=== PATIENT | male | born 1950 | race Caucasian/White ===

== ENCOUNTER → 2017-09-02 | Outpatient (CLI) | payer BC, MEDICARE ==
[~2017-09-02] MED LIST: FENO135C PO; FISH1CAP49 PO; FLUTICASONE PROPIO NASAL; INSU100V SQ; INSU3INS3 SQ; LISI10TA7 PO; LOVAZA PO; MAGN250T10 PO; METF-283 PO; METO50TA9 PO; MULT-40 PO; PARO40TA72 PO; RANO10003 PO; RANO500T2 PO; ROSU40 PO; WARF10TA45 PO
== END | disposition home or self-care (01) ==
LOC: SHCH 10:49
PROVIDERS: ATTEND Internal Medicine Cardiovascular Disease
DX: I65.23 Occlusion and stenosis of bilateral carotid arteries (principal)
CPT/HCPCS: 93880